=== PATIENT | male | born 1990 | race Two or more races ===

== ENCOUNTER 2016-09-27 18:53 | Emergency (ER) | payer SELFPAY ==
[~2016-09-27] VITALS: Ht 175.3 cm; Wt 77.1 kg
[2016-09-27 19:05] VITALS: BP 126/66
[2016-09-27] MEDS ORDERED: Bacitracin Oint UD TOPIC ONE (20:15)
[2016-09-27] MEDS ORDERED: Tetanus/Diptheria/Pertussis Vaccine 0.5ml Syr IM ONE (20:15)
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
[2016-09-27 21:05] VITALS: BP 122/60
[2016-09-27] MEDS ORDERED: BACITRACIN-P28.35 GM TP (21:57)
[2016-09-27] MEDS ORDERED: IBUPROFEN600 MG ORAL (21:57)
[2016-09-27] MEDS ORDERED: CYCLOBENZAPRINE10 MG ORAL (21:57)
[2016-09-27] MEDS ORDERED: SOMA250 MG PO (21:57)
[2016-09-27 22:40] VITALS: BP 124/74
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
== END 2016-09-27 22:40 | disposition home or self-care (01) ==
LOC: EDBD 18:53 → EMR 19:35
DX: S00.83XA Contusion of other part of head, initial encounter (principal); S00.81XA Abrasion of other part of head, initial encounter; S80.212A Abrasion, left knee, initial encounter; S80.211A Abrasion, right knee, initial encounter; S16.1XXA Strain of muscle, fascia and tendon at neck level, initial encounter; V03.99XA Pedestrian with other conveyance injured in collision with car, pick-up truck or van, unspecified whether traffic or nontraffic accident, initial encounter; Y92.410 Unspecified street and highway as the place of occurrence of the external cause; Z23 Encounter for immunization
CPT/HCPCS: 70450; 72125; 90471; 90715; 96372; 99284